=== PATIENT | female | born 1970 | race African-American/Black ===

== ENCOUNTER 2024-11-01 17:39 | Inpatient (IN) | payer MEDICAID, OTHER ==
[~2024-11-01] VITALS: Ht 147.3 cm; Wt 75.6 kg
--- NOTE | 2024-11-01 18:57 | ED.PDOC ---
General HPI Comments 54y F who presents to the ED for chief complaint of flank pain. Pt states she is having R sided flank pain for the past 3 days. Pt states the pain is constant, radiating to the R abdomen, rating the pain 8/10, with noted exacerbation of pain with movement and no relieving factors. Pt has associated nausea and vomiting but otherwise denies any other symptoms. Pt has prior history of kidney stones in the R flank but no prior surgical procedures. Pt otherwise denies any other symptoms at this time. Chief Complaint: Flank Pain Time Seen by MD: 18:54 Reviewed notes: Nurses Notes, Medications, Allergies Allergies: Coded Allergies: Penicillins (Verified Allergy, Unknown, 11/01/24) Sulfa Antibiotics (Verified Allergy, Unknown, 11/01/24) Information Source: Patient Mode of Arrival: Ambulatory Brought in by: self Severity: Moderate Inability to void: None Timing: Days Duration: Since onset Prehospital treatment: None Onset: Spontaneous Symptoms: None History of: Kidney stone Location: (R) Flank Modifying factors: None associated signs and symptoms: Nausea, Vomiting, Flank Pain Past Medical History Past Medical History (Other): kidney stones Surgical History: Denies all surgeries TAPPET ADJUSTER History: Denies all TAPPET ADJUSTER Hx Family History Family History: Family hx of Cancer, Family hx of heart isadora Social History Smoker: Non-Smoker Alcohol: Denies ETOH Use Drugs: Denies Drug Use Lives In: Home Constitutional: denies: chills, diaphoresis, fatigue, fever, malaise, sweats, weakness, others EENTM: denies: blurred vision, double vision, ear bleeding, ear discharge, ear drainage, ear pain, ear ringing, eye pain, eye redness, hearing loss, mouth pain, mouth swelling, nasal discharge, nose bleeding, nose congestion, nose pain, photophobia, tearing, throat pain, throat swelling, voice changes, others Respiratory: denies: cough, hemoptysis, orthopnea, SOB at rest, shortness of breath, SOB with excertion, stridor, wheezing, others Cardiovascular: denies: chest pain, dizzy spells, diaphoresis, Dyspnea on exertion, edema, irregular heart beat, left arm pain, lightheadedness, palpitations, PND, syncope, others Gastrointestinal: reports: nausea, vomiting; denies: abdomen distended, abdominal pain, blood streaked bowels, constipated, diarrhea, dysphagia, difficulty swallowing, hematemesis, melena, poor appetite, poor fluid intake, rectal bleeding, rectal pain, others Genitourinary: reports: flank pain; denies: abnormal vagina bleeding, burning, dyspareunia, dysuria, frequency, hematuria, incontinence, pain, , vagina discharge, urgency, others Neurological: denies: dizziness, fainting, headache, left sided numbness, left sided weakness, numbness, paresthesia, pre-existing deficit, right sided nu mbness, right sided weakness, seizure, speech problems, tingling, tremors, weakness, others Musculoskeletal: denies: back pain, gout, joint pain, joint swelling, muscle pain, muscle stiffness, neck pain, others Integumetry: denies: bruises, change in color, change in hair/nails, dryness, laceration, lesions, lumps, rash, wounds, others Allergic/Immunocompromised: denies: Difficulty Healing, Frequent Infections, Hives, Itching, others Hematologic/Lymphatic: denies: anemia, blood clots, easy bleeding, easy bruising, swollen glands, others Endocrine: denies: excessive hunger, excessive sweating, excessive thirst, excessive urination, flushing, intolerance to cold, intolerance to heat, unexplained weight gain, unexplained weight loss, others Psychiatric: denies: anxiety, bipolar disorder, depression, hopeless, panic disorder, schizophrenia, sleepless, suicidal, others All Other Systems: Reviewed and Negative Physical Exam General Appearance: Moderate Distress HEENT: Normal ENT Inspection, Pharynx Normal, TMs Normal Neck: Full Range of Motion, Non-Tender, Normal, Normal Inspection Respiratory: Chest Non-Tender, Lungs Clear, No Accessory Muscle Use, No Respiratory Distress, Normal Breath Sounds Cardiovascular: No Edema, No JVD, No Murmur, No Gallop, Normal Peripheral Pulses, Regular Rate/Rhythm Breast Exam: Deferred Gastrointestinal: No Organomegaly, Non Tender, No Pulsatile Mass, Normal Bowel Sounds, Soft Genitalia: Deferred Pelvic: Deferred Rectal: Deferred Extremities: No calf tenderness, Normal capillary refill, No pedal edema Musculoskeletal : Location: Right Extremity Location: Back Apperance: Limited ROM, Tenderness: Moderate Neurologic: Alert, crusher wet ground mica II-XII nml as Tested, No Motor Deficits, Normal Affect, Normal Mood, No Sensory Deficits Cerebellar Function: Normal Reflexes: Normal Skin: Dry, Normal Color, Warm Lymphatic: No Adenopathy Was a procedure done? Was a procedure done?: No Differential Diagnosis Kidney stone (Female): Cholelithiasis, Musculoskeletal pain, Pancreatitis, Pyelonephritis, Strain, Urinary obstruction X-Ray, Labs, Meds, VS Vital Signs Date Time Temp Pulse Resp B/P (MAP) Pulse Ox O2 Delivery O2 Flow Rate FiO2 11/01/24 17:41 100.2 109 18 185/73 95 100.2 Lab Test 11/01/24 19:12 11/01/24 17:46 Range/Units White Blood Count 11.0 H 4.4-10.8 10^3/uL Red Blood Count 4.13 4.0-5.20 10^6/uL Hemoglobin 12.0 L 12.2-16.2 g/dL Hematocrit 36.2 36.0-46.0 % Mean Corpuscular Volume 87.6 80.0-100.0 fL Mean Corpuscular Hemoglobin 29.2 28.0-32.0 pg Mean Corpuscular Hemoglobin Concent 33.3 32.0-36.0 g/dL Red Cell Distribution Width 12.6 11.8-14.3 % Platelet Count 231 140-450 10^3/uL Mean Platelet Volume 10.6 6.9-10.8 fL Neutrophils (%) (Auto) 84.4 H 37.0-80.0 % Lymphocytes (%) (Auto) 7.3 L 10.0-50.0 % Monocytes (%) (Auto) 7.8 0.0-12.0 % Eosinophils (%) (Auto) 0.1 0.0-7.0 % Basophils (%) (Auto) 0.4 0.0-2.0 % Neutrophils # (Auto) 9.3 H 1.6-8.6 10 ^3/uL Lymphocytes # (Auto) 0.8 0.4-5.4 10 ^3/uL Monocytes # (Auto) 0.9 0-1.3 10 ^3/uL Eosinophils # (Auto) 0 0-0.8 10 ^3/uL Basophils # (Auto) 0 0-0.2 10 ^3/uL Nucleated Red Blood Cells 0.1 % Sodium Level 138 136-145 mmol/L Potassium Level 3.3 L 3.5-5.1 mmol/L Chloride Level 101 98-107 mmol/L Carbon Dioxide Level 26 20-31 mmol/L Anion Gap 11 5-15 Blood Urea Nitrogen 11 9-23 mg/dL Creatinine 0.82 0.550-1.02 mg/dL Glomerular Filtration Rate Calc 84 >90 mL/min BUN/Creatinine Ratio 13.4 10.0-20.0 Serum Glucose 106 74-106 mg/dL Calcium Level 9.4 8.7-10.4 mg/dL Urine Color Yellow Yellow Urine Clarity Turbid H Clear Urine pH 5.5 5.0-9.0 Urine Specific [place] 1.021 1.001-1.035 Urine Protein 1+ H Negative Urine Ketones 2+ H Negative Urine Blood Trace H Negative /uL Urine Nitrite Negative Negative Urine Bilirubin Negative Negative Urine Urobilinogen Normal Negative mg/dL Urine Leukocyte Esterase 1+ Negative /uL Urine RBC 11 0 - 4 /hpf Urine Microscopic WBC 27 H 0-5 /HPF Urine Squamous Epithelial Cells Few <5 /hpf Urine Bacteria Few H None Seen /hpf Urine Mucus Few None Seen Urine Glucose Normal Normal mg/dL Exam: CT CT AB PEL WO CON-NO ORAL OR IV IMPRESSION: Heterogeneous appearance of the kidneys with nonobstructing bilateral renal calculi. Mild nonspecific qlvuy-kzyiqyb-tycb-left perinephric fat stranding. Correlate for possible infectious process. Fibroid uterus. Hepatic steatosis. Sigmoid diverticulosis without diverticulitis. IV Hep-Lock was established The patient was given medication for the pain as well as Zofran for the nausea The patient's urine test is positive for UTI The patient was given Rocephin 1 g IV piggyback The patient is still having flank pain The CBC shows an elevated white blood cell count of 11.0 which could be consistent with acute pyelonephritis. Images Reviewed?: Images reviewed and evaluated by me Time of 1ST Reevaluation: 20:32 Reevaluation 1ST: Unchanged Patient Education/Counseling: Diagnosis, Treatment, Prognosis Family Education/Counseling: No Family Present SEPSIS Sepsis Screen Date sepsis recognized/suspect: Nov 01, 2024 Time Sepsis recognized/suspect: 1740 Recent Procedure: No On Antibiotic Therapy: No Respiratory Rate >20: No Heart Rate >90: Yes Temp<36 C (96.8 F) or >38.3 C: No SBP <90 or MAP <65 mmHG: No New Acute Mental Status Change: No Is the patient on CPAP, BIPAP,: No Physician Orders Ct Ab Pel Wo Con-No Oral Or Iv (11/01/24 18:50) Heplock Iv (11/01/24 18:50) Vital Signs Date Time Temp Pulse Resp B/P (MAP) Pulse Ox O2 Delivery O2 Flow Rate FiO2 11/01/24 17:41 100.2 109 18 185/73 95 100.2 Laboratory Tests Test 11/01/24 19:12 White Blood Count 11.0 10^3/uL (4.4-10.8) H Departure 1 Departure Time of Disposition: 20:31 Impression: Primary Impression: Intractable abdominal pain Additional Impression: Acute pyelonephritis Disposition: ADMITTED INPATIENT Admit to: Med Surg Condition: Fair Critical Care Note Critical Care Time?: No Stability Stability form required: No Heart Score Heart Score: Heart Score Response (Comments) Value History N/A 0 EKG N/A 0 Age N/A 0 Risk Factors N/A 0 Troponin N/A 0 Total 0 I personally scribed for THOR JOLLY MD ([email or web address]) on 11/01/24 at 18:57. Electronically submitted by Stephanie Morse ([email or web address]). I personally scribed for THOR JOLLY MD ([email or web address]) on 11/01/24 at 20:08. Electronically submitted by Stephanie Morse ([email or web address]). THOR JOLLY MD Nov 01, 2024 18:57
[2024-11-01 19:49] LABS: Urine Protein, UAD 1+ (Negative)
[2024-11-01 19:55] LABS: Hematocrit 36.2 % (36.0-46.0); Hemoglobin 12.0 g/dL (12.2-16.2); Mean Corpuscular Hemoglobin 29.2 pg (28.0-32.0); Mean Corpuscular Volume 87.6 fL (80.0-100.0); Nucleated Red Blood Cells % 0.1 %
--- NOTE | 2024-11-01 19:59 | DVH ---
Exam: CT CT AB PEL WO CON-NO ORAL OR IV History: right flank pain Comparison Study: None TECHNIQUE: Multidetector CT of the abdomen was performed from lung bases to pubic symphysis. Imaging was performed without IV contrast. Axial, coronal and sagittal multiplanar reformats were obtained fr om the axial data set by the technologist. Radiation Dose Information: CT Dose: CTDI volume is 8.87 mGy. Dose-length product is 3.92 mGy*cm FINDINGS: The lung bases are clear. Mild cardiomegaly. Mild hepatic steatosis. Otherwise, liver, spleen, gallbladder, pancreas and adrenal glands unremarka ble. Heterogeneous appearance of the kidneys with nonobstructing bilateral renal calculi measuring up to 6 mm of the upper pole of the left kidney 5 mm of the interpolar region of the right kidney. Mild righ x-zainrjn-mbcg-left perinephric fat stranding. No hydronephrosis bilaterally. Urinary bladder is unre markable. Fibroid uterus with calcified and noncalcified fibroids. Stomach is unremarkable. Small bowel loops are unremarkable. Appendix is unremarkable. Sigmoid diver ticulosis without diverticulitis. Small to moderate amount of fecal material within the colon. No evidence of intraperitoneal free air or free fluid. No evidence of aortic aneurysm. No significant lymphadenopathy. Soft tissues unremarkable. No destructive osseous lesions noted. IMPRESSION: Heterogeneous appearance of the kidneys with nonobstructing bilateral renal calculi. Mild nonspecific eroqc-sycyxva-yclc-left perinephric fat stranding. Correlate for possible infectiou s process. Fibroid uterus. Hepatic steatosis. Sigmoid diverticulosis without diverticulitis.
[2024-11-01 20:01] LABS: Chloride 101 mmol/L (98-107); Sodium 138 mmol/L (136-145)
[2024-11-01 20:02] LABS: Anion Gap 11 (5-15); Carbon Dioxide 26 mmol/L (20-31)
[2024-11-01 20:03] LABS: Calcium 9.4 mg/dL (8.7-10.4)
[2024-11-01 20:07] LABS: BUN/Creatinine Ratio 13.4 (10.0-20.0); Blood Urea Nitrogen 11 mg/dL (9-23)
[2024-11-01 20:08] LABS: Glucose 106 mg/dL (74-106); Potassium 3.3 mmol/L (3.5-5.1)
--- NOTE | 2024-11-01 22:33 | DVHHPRES ---
History of Present Illness Resident Creating Document: PETER BENITO RESIDENT History of Present Illness The patient reports having flank and back pain rating 10/10, associated with nausea and vomiting since last 3 days. She reports exertional shortness of breath, no relation with position. She also has productive cough with white sputum. The reports she often gets cough for more than 1 month duration. The patient also has occasional headaches. She denies any chest pain, fever or any other complaints. 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, P2, multiple abortions Family history: Daughter and niece has sickle cell trait, grandchildren have sickle cell disease Father had colon cancer, mother also had cancer which the patient could not specify Smoking history never Drugs never Alcohol never Home medications low-dose amlodipine, atorvastatin Allergies: sulfa, penicillins, saline Code status full code Review of Systems Gastrointestinal: Abdominal Pain Allergies: Coded Allergies: Penicillins (Verified Allergy, Unknown, 11/01/24) Sulfa Antibiotics (Verified Allergy, Unknown, 11/01/24) Medications Current Medications Medications Dose Ordered Sig/Hany Route Start Time Stop Time Status Last Admin Dose Admin Morphine Sulfate 2 mg Q4HPRN PRN IV 11/01/24 22:30 UNV Exam Vital Signs Vital Signs Date Time Temp Pulse Resp B/P (MAP) Pulse Ox O2 Delivery O2 Flow Rate FiO2 11/01/24 17:41 100.2 109 18 185/73 95 100.2 Exam Pt is lying on bed General Appearance: Alert, Oriented X3, Cooperative, Mild distress HEENT: Atraumatic, Mucous membranes moist/pink Respiratory: Mild crackles over both lungs on auscultation, Normal air movement, No added sounds Cardiovascular: Regular rate, Normal S1, Normal S2, No murmurs Abdominal/ : Active bowel sounds, Soft, no distention, no costovertebral angle tenderness, tenderness noted in bilateral flanks Extremities: No edema, Normal pulses, No tenderness/swelling Skin: No Significant rash, except past surgical scars Neuro: Normal speech, sensorimotor deficits none Psych/Mental Status: Mental status NL, Mood NL Nurse was there as brazing furnace operator during examination Labs/Xrays Labs Test 11/01/24 19:12 11/01/24 17:46 Range/Units White Blood Count 11.0 H 4.4-10.8 10^3/uL Red Blood Count 4.13 4.0-5.20 10^6/uL Hemoglobin 12.0 L 12.2-16.2 g/dL Hematocrit 36.2 36.0-46.0 % Mean Corpuscular Volume 87.6 80.0-100.0 fL Mean Corpuscular Hemoglobin 29.2 28.0-32.0 pg Mean Corpuscular Hemoglobin Concent 33.3 32.0-36.0 g/dL Red Cell Distribution Width 12.6 11.8-14.3 % Platelet Count 231 140-450 10^3/uL Mean Platelet Volume 10.6 6.9-10.8 fL Neutrophils (%) (Auto) 84.4 H 37.0-80.0 % Lymphocytes (%) (Auto) 7.3 L 10.0-50.0 % Monocytes (%) (Auto) 7.8 0.0-12.0 % Eosinophils (%) (Auto) 0.1 0.0-7.0 % Basophils (%) (Auto) 0.4 0.0-2.0 % Neutrophils # (Auto) 9.3 H 1.6-8.6 10 ^3/uL Lymphocytes # (Auto) 0.8 0.4-5.4 10 ^3/uL Monocytes # (Auto) 0.9 0-1.3 10 ^3/uL Eosinophils # (Auto) 0 0-0.8 10 ^3/uL Basophils # (Auto) 0 0-0.2 10 ^3/uL Nucleated Red Blood Cells 0.1 % Sodium Level 138 136-145 mmol/L Potassium Level 3.3 L 3.5-5.1 mmol/L Chloride Level 101 98-107 mmol/L Carbon Dioxide Level 26 20-31 mmol/L Anion Gap 11 5-15 Blood Urea Nitrogen 11 9-23 mg/dL Creatinine 0.82 0.550-1.02 mg/dL Glomerular Filtration Rate Calc 84 >90 mL/min BUN/Creatinine Ratio 13.4 10.0-20.0 Serum Glucose 106 74-106 mg/dL Calcium Level 9.4 8.7-10.4 mg/dL Urine Color Yellow Yellow Urine Clarity Turbid H Clear Urine pH 5.5 5.0-9.0 Urine Specific [place] 1.021 1.001-1.035 Urine Protein 1+ H Negative Urine Ketones 2+ H Negative Urine Blood Trace H Negative /uL Urine Nitrite Negative Negative Urine Bilirubin Negative Negative Urine Urobilinogen Normal Negative mg/dL Urine Leukocyte Esterase 1+ Negative /uL Urine RBC 11 0 - 4 /hpf Urine Microscopic WBC 27 H 0-5 /HPF Urine Squamous Epithelial Cells Few <5 /hpf Urine Bacteria Few H None Seen /hpf Urine Mucus Few None Seen Urine Glucose Normal Normal mg/dL SEPSIS Sepsis Screen Date sepsis recognized/suspect: Nov 01, 2024 Time Sepsis recognized/suspect: 1740 Recent Procedure: No On Antibiotic Therapy: No Respiratory Rate >20: No Heart Rate >90: Yes Temp<36 C (96.8 F) or >38.3 C: No SBP <90 or MAP <65 mmHG: No New Acute Mental Status Change: No Is the patient on CPAP, BIPAP,: No Physician Orders Ct Ab Pel Wo Con-No Oral Or Iv (11/01/24 18:50) Heplock Iv (11/01/24 18:50) Sodium Chloride 0.9% (11/01/24 22:30) Chest Two Views Routine (11/01/24 22:19) Admit (11/01/24 22:19) Allergies (11/01/24 22:19) Code Status (11/01/24 22:19) Oxygen Per Hour (11/01/24 22:19) Complete Blood Count (11/02/24 04:00) Comprehensive Metabolic Panel (11/02/24 04:00) Clear Liq Diet (11/02/24 Breakfast) Morphine Sulfate Injection (11/01/24 22:30) Stat Ekg For Chest Pain (11/01/24 22:19) Notify Of Changes From Base (11/01/24 22:19) Vital Signs Date Time Temp Pulse Resp B/P (MAP) Pulse Ox O2 Delivery O2 Flow Rate FiO2 11/01/24 17:41 100.2 109 18 185/73 95 100.2 Laboratory Tests Test 11/01/24 19:12 White Blood Count 11.0 10^3/uL (4.4-10.8) H Assessment/Plan Assessment/Plan Flank pain due to nephrolithiasis CT abdomen pelvis without contrast: Heterogeneous appearance of the kidneys with nonobstructing bilateral renal calculi.Mild nonspecific qsrno-nypznkp-zeee-left perinephric fat stranding. Correlate for possible infectious process. Fibroid uterus. Hepatic steatosis. Sigmoid diverticulosis without diverticulitis. -IV normal saline, Benadryl injection was given before due to concern related to allergy -close monitoring for signs symptoms of allergy -tamsulosin -urology consult -morphine for pain control Cough due to pneumonia/pulmonary edema Chest x-ray:1. Mild pulmonary vascular congestion. No focal consolidation. 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 Barajas, patient and RN Plan discussed with: Patient, Spouse (RN), Other My Orders Orders - PETER BENITO Procedure Category Date Status Time Sodium Chloride 0.9% PHA 11/01/24 In Process 22:30 Chest Two Views XY 11/01/24 Logged Routine 22:19 Admit ADMIT 11/01/24 Transmitted 22:19 Allergies HITESH 11/01/24 In Process 22:19 Code Status CODE 11/01/24 Transmitted 22:19 Oxygen Per Hour RT 11/01/24 Transmitted 22:19 Complete Blood Count LAB 11/02/24 Verified 04:00 Comprehensive LAB 11/02/24 Verified Metabolic Panel 04:00 Clear Liq Diet DIET 11/02/24 Transmitted Breakfast Morphine Sulfate PHA 11/01/24 Logged Injection 22:30 Stat Ekg For Chest HITESH 11/01/24 In Process Pain 22:19 Notify Of Changes HITESH 11/01/24 In Process From Base 22:19 Common Visit Codes: 37926-[id number] INP/OBS CARE (HIGH) Secondary Visit Codes: [id number] CARE PLAN 30 MINUTES PETER BENITO Nov 01, 2024 22:33
--- NOTE | 2024-11-01 23:02 | DVH ---
XY CHEST TWO VIEWS ROUTINE CLINICAL HISTORY: Cough, crackles COMPARISON: None TECHNIQUE: Frontal and lateral view of the chest was obtained FINDINGS: Lines and Tubes: None Lungs: Mild pulmonary vascular congestion. No focal consolidation. Pleura: No effusion. No pneumothorax. Cardiomediastinal contours: Unremarkable Bones: No acute osseous abnormality. IMPRESSION: 1. Mild pulmonary vascular congestion. No focal consolidation.
[2024-11-01] MEDS: SODIUM CHLORIDE 0.9% 1,000 ML IV ONE (23:59)
[2024-11-02] MEDS: SODIUM CHLORIDE 0.9% 1,000 ML IVB ONE (02:07)
[2024-11-02] MEDS: diphenhdrAMINE HCL 50 MG/1 ML VL IV ONE (02:08)
[2024-11-02] MEDS: KETOROLAC TROMETH 30 MG/ML 1ML VIAL IV ONE (02:15)
[2024-11-02] MEDS: ONDANSETRON HCL 4 MG/2 ML VIAL IV ONE (02:15)
[2024-11-02] MEDS: TAMSULOSIN HYDROCHLORIDE 0.4 MG CAP PO ONE (03:00)
[2024-11-02 04:44] LABS: Hematocrit 34.3 % (36.0-46.0); Hemoglobin 11.4 g/dL (12.2-16.2); Mean Corpuscular Hemoglobin 29.1 pg (28.0-32.0); Mean Corpuscular Volume 87.7 fL (80.0-100.0); Nucleated Red Blood Cells % 0.1 %
[2024-11-02 05:03] LABS: Alanine Aminotransferase 15 U/L (7-40); Albumin 4.7 g/dL (3.2-4.8); Alkaline Phosphatase 63 U/L (46-116); Anion Gap 11 (5-15); BUN/Creatinine Ratio 12.7 (10.0-20.0); Bilirubin, Total 0.7 mg/dL (0.2-1.0); Blood Urea Nitrogen 10 mg/dL (9-23); Calcium 9.2 mg/dL (8.7-10.4); Carbon Dioxide 26 mmol/L (20-31); Chloride 101 mmol/L (98-107); Sodium 138 mmol/L (136-145); Total Protein 8.0 g/dL (5.7-8.2)
[2024-11-02 05:06] LABS: Glucose 114 mg/dL (74-106); Potassium 3.2 mmol/L (3.5-5.1)
--- NOTE | 2024-11-02 07:46 | DVHPNRES ---
Progress Note Date Seen: Nov 02, 2024 Resident Creating Document: MONET APARICIO RESIDENT Medical Necessity Reason Pt with a Central, PICC or Fol: No Subjective Review of Systems Lenore Armas is a 54-year-old female with past medical history of hypertension, hyperlipidemia, she came to the ER with chief complain of flank pain and back pain. On admission, flank and back pain rating 10/10, associated with nausea and vomiting since last 3 days. She reported exertional shortness of breath. She also had productive cough with white sputum on admission. The patient also reported occasional headaches. PMHx: HTN, HLD Social history: Nonsmoker, nonalcoholic. Lives in a home ROS: Constitutional: Denies weight loss, fever and chills. HEENT: Denies changes in vision and hearing. Respiratory: Cough with white sputum production, shortness of breath Cardiovascular: Denies chest discomfort or palpitations GI: Flank pain, back pain associated with nausea, vomiting. 2 episodes yesterday. : History of kidney stones. Denies dysuria and urinary frequency. Musculoskeletal: Denies myalgias and joint pain Skin: Denies rash and pruritus. Neurological: Headache, denies vision or hearing problems She was examined at bedside today. Her vitals show elevated blood pressure, fever has resolved now. She complains of back pain in the right flank, which started 3 days ago , rating pain 4 on 10. Complains of fever which was present yesterday. She also complained of constipation since the last 2 days. Objective vital signs Vital Sign Date Time Temp Pulse Resp B/P (MAP) Pulse Ox O2 Delivery O2 Flow Rate FiO2 11/02/24 07:02 99.1 86 16 184/67 (106) 96 99.1 Total Intake and Output 11/01/24 11/01/24 11/02/24 15:00 23:00 07:00 Intake Total 1000 ml Balance 1000 ml medications Current Medications Medications Dose Ordered Sig/Hany Route Start Time Stop Time Status Last Admin Dose Admin Morphine Sulfate 2 mg Q4HPRN PRN IV 11/01/24 22:30 Tamsulosin HCl 0.4 mg QPM PO 11/02/24 18:00 Nifedipine 60 mg DAILY PO 11/02/24 10:00 Examination General Appearance: Alert, Oriented X3, Cooperative, No acute distress HEENT: Atraumatic, PERRLA, EOMI, Mucous membrane moist/pink Respiratory: Lungs are clear to auscultation Cardiovascular: Regular rate, Normal S1, Normal S2, No murmurs, no chest wall tenderness Abdominal: Normal bowel sounds, Soft, No tenderness, No hepatospenomegaly, No masses Extremities: No clubbing, No cyanosis, No edema, Normal pulses, No tenderness/swelling Skin: No rashes, No breakdown, No significant lesion Neuro: Normal gait, Normal speech, Strength at 5/5 X4 ext, Normal tone, Sensation intact, Cranial nerves 3-12 NL, Reflexes 2+ Psych/Mental Status: Mental status NL, Mood NL laboratory and microbiology Laboratory Tests 11/02/24 03:49 Test 11/02/24 03:49 Range/Units Serum Glucose 114 H 74-106 mg/dL Problem List/Assessment/Plan Problem List/Assessment/Plan Intractable Left flank pain, likely due to below Sepsis due to Complicated UTI Pyelonephritis, possible Neutrophilic leukocytosis WBCs 12.9 K Tachycardia, fever Lactic acid WNL UA positive for UTI; Turbid urine, trace blood, U WBC 27, few bacteria Pain management Urine culture ordered Blood culture ordered Renal calculi CC of recurrent renal calculi Continue tamsulosin CT shows Heterogeneous appearance of the kidneys with nonobstructing bilateral renal calculi. Hypertensive urgency Managed with clonidine, nifedipine Fibroid uterus, CT finding Hepatic steatosis, CT finding Diverticulosis, without diverticulitis, CT finding Microcytic anemia DIET: Clear Liquid DVT PROPHYLAXIS: Ambulatory GI PROPHYLAXIS: Famotidine BOWEL REGIMEN: Colace CODE STATUS: Goals of care discussed with patient at bedside for more than 35 minutes. Full code DISPOSITION: Med/surge Patient's status and plan discussed with the patient. Case discussed with Dr. Mahoney. Plan discussed with: Patient Date of Service: Nov 02, 2024 Billing Provider: DELMIS MAHONEY MD Common Visit Codes: [id number] INP/OBS CARE(HIGH) MONET APARICIO RESIDENT Nov 02, 2024 07:46 DELMIS MAHONEY MD Nov 06, 2024 20:29
[2024-11-02] MEDS: POTASSIUM CHLORIDE 40 MEQ, LIDOCAINE 1% (LOCAL ANESTH.) 4 ML in SODIUM CHL 0.9% 250 ML IV ONE (08:30)
[2024-11-02] MEDS: LACTATED RINGER'S 1,000 ML IV SCH (08:30)
[2024-11-02] MEDS: LACTATED RINGER'S 1,000 ML IV ONE (08:30)
[2024-11-02] MEDS: PIPERACILLIN-TAZOB 3.375GM 100 ML IV SCH (08:30)
[2024-11-02] MEDS ORDERED: ACETAMINOPHEN 325 MG TAB PO PRN (08:45)
[2024-11-02] MEDS ORDERED: LABETALOL HCL 20 MG/4 ML VL IV PRN (08:45)
[2024-11-02] MEDS: FAMOTIDINE (10MG/ML) 2ML VL IV SCH (11:10)
[2024-11-02] MEDS: MORPHINE SULFATE INJ 2 MG/ml SYRG IV PRN (11:56)
[2024-11-02] MEDS ORDERED: cefTRIAXone 1GM/50ML D5W 50 ML IV SCH (12:00)
[2024-11-02 13:18] VITALS: RESP 16; O2SAT 94
[2024-11-02 13:25] VITALS: BP 196/95; PULSE 89; RESP 18; TEMP 98.3; O2SAT 98
[2024-11-02 14:18] VITALS: BP 140/73; PULSE 84; RESP 17; TEMP 97.4; O2SAT 94
[2024-11-02 17:00] VITALS: BP 135/82; PULSE 85; RESP 18; TEMP 98.1; O2SAT 93
[2024-11-02] MEDS: LISINOPRIL 20 MG TAB PO ONE (17:00)
[2024-11-02] MEDS: ACETAMINOPHEN 325 MG TAB PO SCH (18:00)
[2024-11-02] MEDS: TAMSULOSIN HYDROCHLORIDE 0.4 MG CAP PO SCH (18:12)
[2024-11-02 20:00] VITALS: PULSE 92; RESP 17; O2SAT 95
[2024-11-02 21:00] VITALS: BP 134/68; PULSE 94; RESP 17; TEMP 98.3; O2SAT 95
[2024-11-02] MEDS: FAMOTIDINE 20 MG TAB PO SCH (21:50)
[2024-11-03] VITALS (8 sets, daily range): BP systolic 108–132; BP diastolic 53–67; PULSE 79–95; RESP 16–18; TEMP 98–98.6; O2SAT 92–98
[2024-11-03 07:56] LABS: Hematocrit 32.3 % (36.0-46.0); Hemoglobin 11.1 g/dL (12.2-16.2); Mean Corpuscular Hemoglobin 29.9 pg (28.0-32.0); Mean Corpuscular Volume 87.0 fL (80.0-100.0); Nucleated Red Blood Cells % 0.0 %
[2024-11-03 08:10] LABS: Chloride 100 mmol/L (98-107); Sodium 138 mmol/L (136-145)
[2024-11-03 08:11] LABS: Anion Gap 9 (5-15); Calcium 9.3 mg/dL (8.7-10.4); Carbon Dioxide 29 mmol/L (20-31)
[2024-11-03 08:16] LABS: BUN/Creatinine Ratio 11.8 (10.0-20.0); Blood Urea Nitrogen 10 mg/dL (9-23); Glucose 99 mg/dL (74-106)
[2024-11-03 08:21] LABS: Potassium 2.9 mmol/L (3.5-5.1)
[2024-11-03] MEDS: hydroCHLOROthiazide 25 MG TAB PO SCH (10:00)
[2024-11-03] MEDS: LISINOPRIL 20 MG TAB PO SCH (10:00)
[2024-11-03] MEDS: FAMOTIDINE 20 MG TAB PO SCH (10:00)
[2024-11-03] MEDS: POTASSIUM CHLORIDE 60 MEQ, LIDOCAINE 1% (LOCAL ANESTH.) 6 ML in SODIUM CHL 0.9% 500 ML IV ONE (12:35)
--- NOTE | 2024-11-03 18:06 | DVHPNRES ---
Progress Note Date Seen: Nov 03, 2024 Resident Creating Document: MONET APARICIO RESIDENT Medical Necessity Reason Pt with a Central, PICC or Fol: No Subjective Review of Systems Lenore Armas is a 54-year-old female with past medical history of hypertension, hyperlipidemia, she came to the ER with chief complain of flank pain and back pain. On admission, flank and back pain rating 10/10, associated with nausea and vomiting since last 3 days. She reported exertional shortness of breath. She also had productive cough with white sputum on admission. The patient also reported occasional headaches. PMHx: HTN, HLD Social history: Nonsmoker, nonalcoholic. Lives in a home ROS: Constitutional: Denies weight loss, fever and chills. HEENT: Denies changes in vision and hearing. Respiratory: Cough with white sputum production, shortness of breath Cardiovascular: Denies chest discomfort or palpitations GI: Flank pain, back pain associated with nausea, vomiting. 2 episodes yesterday. : History of kidney stones. Denies dysuria and urinary frequency. Musculoskeletal: Denies myalgias and joint pain Skin: Denies rash and pruritus. Neurological: Headache, denies vision or hearing problems She was examined at bedside today. Vitals are revealed blood pressure on the lower side. She reported improvement in symptoms. We will switch to oral antibiotics tomorrow if she remains stable. We will continue monitoring. Objective vital signs Vital Sign Date Time Temp Pulse Resp B/P (MAP) Pulse Ox O2 Delivery O2 Flow Rate FiO2 11/03/24 16:53 98.2 80 16 124/53 (76) 95 98.2 11/03/24 07:37 Room Air* 0 21 Total Intake and Output 11/02/24 11/02/24 11/03/24 15:00 23:00 07:00 Intake Total 300 ml 400 ml Balance 300 ml 400 ml medications Current Medications Medications Dose Ordered Sig/Hany Route Start Time Stop Time Status Last Admin Dose Admin Levofloxacin/ Dextrose 100 ml @ 100 mls/hr DAILY IV 11/02/24 13:15 11/03/24 09:59 100 MLS/HR Nifedipine 90 mg DAILY PO 11/03/24 10:00 Lisinopril 20 mg DAILY PO 11/03/24 10:00 11/03/24 10:00 20 MG Acetaminophen 650 mg Q6HR PO 11/02/24 18:00 Hydrochlorothiazide 25 mg DAILY PO 11/03/24 10:00 11/03/24 10:00 25 MG Famotidine 20 mg DAILY PO 11/03/24 10:00 11/03/24 10:00 20 MG Examination General Appearance: Alert, Oriented X3, Cooperative, No acute distress HEENT: Atraumatic, PERRLA, EOMI, Mucous membrane moist/pink Respiratory: Lungs are clear to auscultation Cardiovascular: Regular rate, Normal S1, Normal S2, No murmurs, no chest wall tenderness Abdominal: Normal bowel sounds, Soft, No tenderness, No hepatospenomegaly, No masses Extremities: No clubbing, No cyanosis, No edema, Normal pulses, No tenderness/swelling Skin: No rashes, No breakdown, No significant lesion Neuro: Normal gait, Normal speech, Strength at 5/5 X4 ext, Normal tone, Sensation intact, Cranial nerves 3-12 NL, Reflexes 2+ Psych/Mental Status: Mental status NL, Mood NL laboratory and microbiology Laboratory Tests 11/03/24 06:33 Test 11/03/24 06:33 Range/Units Serum Glucose 99 74-106 mg/dL Microbiology Date/Time Source Procedure Growth Status 11/02/24 09:18 Blood Blood Culture - Preliminary NO GROWTH AFTER 24 HOURS OF INCUBATION. Resulted 11/01/24 17:48 Voided Urine Urine Culture - Preliminary Resulted Problem List/Assessment/Plan Problem List/Assessment/Plan Intractable Left flank pain, likely due to below Sepsis due to Complicated UTI Pyelonephritis, possible Neutrophilic leukocytosis WBCs 12.9 K Tachycardia, fever Lactic acid WNL UA positive for UTI; Turbid urine, trace blood, U WBC 27, few bacteria Urine culture negative preliminary Blood culture negative preliminary Pain management Continues IV levofloxacin We will switch antibiotics to oral levofloxacin tomorrow if she remains stable Renal calculi Hx of recurrent renal calculi Continue tamsulosin CT shows Heterogeneous appearance of the kidneys with nonobstructing bilateral renal calculi. Hypertensive urgency Managed with clonidine, nifedipine Fibroid uterus, CT finding Hepatic steatosis, CT finding Diverticulosis, without diverticulitis, CT finding Microcytic anemia DIET: Clear Liquid DVT PROPHYLAXIS: Ambulatory GI PROPHYLAXIS: Famotidine BOWEL REGIMEN: Colace CODE STATUS: Goals of care discussed with patient at bedside for more than 35 minutes. Full code DISPOSITION: Med/surge Patient's status and plan discussed with the patient. Case discussed with Dr. Mahoney. Plan discussed with: Patient Date of Service: Nov 03, 2024 Billing Provider: DELMIS MAHONEY MD Common Visit Codes: [id number] INP/OBS CARE(HIGH) MONET APARICIO RESIDENT Nov 03, 2024 18:06 DELMIS MAHONEY MD Nov 06, 2024 20:45
[2024-11-04] VITALS (8 sets, daily range): BP systolic 106–151; BP diastolic 65–86; PULSE 81–101; RESP 14–20; TEMP 97.7–98.8; O2SAT 92–97
[2024-11-04] MEDS: diphenhdrAMINE HCL 50 MG/1 ML VL IV ONE (05:03)
[2024-11-04] MEDS ORDERED: cefTRIAXone 1GM/50ML D5W 50 ML IV ONE (12:00)
[2024-11-04 14:31] LABS: Chloride 100 mmol/L (98-107); Sodium 137 mmol/L (136-145)
[2024-11-04 14:32] LABS: Anion Gap 9 (5-15); Calcium 9.2 mg/dL (8.7-10.4); Carbon Dioxide 28 mmol/L (20-31)
[2024-11-04 14:33] LABS: Potassium 3.2 mmol/L (3.5-5.1)
[2024-11-04 14:37] LABS: BUN/Creatinine Ratio 11.1 (10.0-20.0); Glucose 105 mg/dL (74-106)
[2024-11-04 14:39] LABS: Blood Urea Nitrogen 9 mg/dL (9-23)
--- NOTE | 2024-11-04 14:55 | DVHPNRES ---
Progress Note Date Seen: Nov 04, 2024 Resident Creating Document: MONET APARICIO RESIDENT Medical Necessity Reason Pt with a Central, PICC or Fol: No Subjective Review of Systems Lenore Armas is a 54-year-old female with past medical history of hypertension, hyperlipidemia, she came to the ER with chief complain of flank pain and back pain. On admission, flank and back pain rating 10/10, associated with nausea and vomiting since last 3 days. She reported exertional shortness of breath. She also had productive cough with white sputum on admission. The patient also reported occasional headaches. PMHx: HTN, HLD Social history: Nonsmoker, nonalcoholic. Lives in a home ROS: Constitutional: Denies weight loss, fever and chills. HEENT: Denies changes in vision and hearing. Respiratory: Cough with white sputum production, shortness of breath Cardiovascular: Denies chest discomfort or palpitations GI: Flank pain, back pain associated with nausea, vomiting. 2 episodes yesterday. : History of kidney stones. Denies dysuria and urinary frequency. Musculoskeletal: Denies myalgias and joint pain Skin: Denies rash and pruritus. Neurological: Headache, denies vision or hearing problems She was examined at bedside today. She reported new onset swelling of the lip overnight, does not complain of difficulty breathing, itching, pain. Her vitals are stable. Her urine culture sensitivity report shows resistance to levofloxacin, ciprofloxacin, we will switch antibiotics to IV ceftriaxone. We will continue monitoring and managing. Objective vital signs Vital Sign Date Time Temp Pulse Resp B/P (MAP) Pulse Ox O2 Delivery O2 Flow Rate FiO2 11/04/24 13:00 97.7 82 19 149/86 (107) 96 97.7 11/04/24 07:30 Room Air* 0 21 Total Intake and Output 11/03/24 11/03/24 11/04/24 15:00 23:00 07:00 Intake Total 320 ml 1250 ml 1220 ml Balance 320 ml 1250 ml 1220 ml medications Current Medications Medications Dose Ordered Sig/Hany Route Start Time Stop Time Status Last Admin Dose Admin Nifedipine 90 mg DAILY PO 11/03/24 10:00 11/04/24 10:16 90 MG Acetaminophen 650 mg Q6HR PO 11/02/24 18:00 11/04/24 12:04 650 MG Hydrochlorothiazide 25 mg DAILY PO 11/03/24 10:00 11/04/24 10:11 25 MG Famotidine 20 mg DAILY PO 11/03/24 10:00 11/04/24 10:11 20 MG Amlodipine Besylate 5 mg DAILY PO 11/04/24 10:00 11/04/24 10:10 5 MG Ceftriaxone Sodium 50 ml @ 100 mls/hr DAILY@09 IV 11/05/24 09:00 Examination General Appearance: Alert, Oriented X3, Cooperative, No acute distress HEENT: Atraumatic, PERRLA, EOMI, Mucous membrane moist/pink Respiratory: Lungs are clear to auscultation Cardiovascular: Regular rate, Normal S1, Normal S2, No murmurs, no chest wall tenderness Abdominal: Normal bowel sounds, Soft, No tenderness, No hepatospenomegaly, No masses Extremities: No clubbing, No cyanosis, No edema, Normal pulses, No tenderness/swelling Skin: No rashes, No breakdown, No significant lesion Neuro: Normal gait, Normal speech, Strength at 5/5 X4 ext, Normal tone, Sensation intact, Cranial nerves 3-12 NL, Reflexes 2+ Psych/Mental Status: Mental status NL, Mood NL laboratory and microbiology Laboratory Tests 11/04/24 14:03 11/03/24 06:33 Test 11/04/24 14:03 Range/Units Serum Glucose 105 74-106 mg/dL Microbiology Date/Time Source Procedure Growth Status 11/02/24 09:18 Blood Blood Culture - Preliminary NO GROWTH AFTER 48 HOURS OF INCUBATION. Resulted 11/01/24 17:48 Voided Urine Urine Culture - Final Escherichia coli Complete Problem List/Assessment/Plan Problem List/Assessment/Plan Intractable Left flank pain, likely due to below Sepsis due to Complicated UTI Pyelonephritis, possible Neutrophilic leukocytosis WBCs 12.9 K Tachycardia, fever Lactic acid WNL UA positive for UTI; Turbid urine, trace blood, U WBC 27, few bacteria Urine culture shows E coli resistant to levofloxacin, ciprofloxacin Blood culture negative preliminary Pain management Culture shows resistance to levofloxacin; Discontinue IV levofloxacin Start IV ceftriaxone Angioedema likely due to DEON inhibitor Discontinue lisinopril. Continue monitoring Renal calculi Hx of recurrent renal calculi Continue tamsulosin CT shows Heterogeneous appearance of the kidneys with nonobstructing bilateral renal calculi. Hypertensive urgency Managed with clonidine, nifedipine Fibroid uterus, CT finding Hepatic steatosis, CT finding Diverticulosis, without diverticulitis, CT finding Microcytic anemia DIET: Clear Liquid DVT PROPHYLAXIS: Ambulatory GI PROPHYLAXIS: Famotidine CODE STATUS: Goals of care discussed with patient at bedside for more than 25 minutes. Full code DISPOSITION: Med/surge Patient's status and plan discussed with the patient. Case discussed with Dr. Mahoney. Plan discussed with: Patient (and spouse) Date of Service: Nov 04, 2024 Billing Provider: DELMIS MAHONEY MD Common Visit Codes: [id number] INP/OBS CARE(HIGH) MONET APARICIO RESIDENT Nov 04, 2024 14:55 DELMIS MAHONEY MD Nov 06, 2024 21:07
[2024-11-04] MEDS: cefTRIAXone 1GM/50ML D5W 50 ML IV ONE (16:33)
[2024-11-04] MEDS: diphenhdrAMINE HCL 25 MG CAP PO SCH (21:29)
[2024-11-04] MEDS: predniSONE 20 MG TAB PO ONE (21:29)
[2024-11-05] VITALS (8 sets, daily range): BP systolic 136–149; BP diastolic 74–88; PULSE 80–98; RESP 16–18; TEMP 98.2–98.9; O2SAT 91–98
[2024-11-05] MEDS ORDERED: POTASSIUM EFFERVESENT TAB 25 MEQ GT ONE (01:00)
[2024-11-05] MEDS: POTASSIUM EFFERVESENT TAB 25 MEQ PO ONE (05:45)
[2024-11-05 07:39] LABS: Calcium 9.8 mg/dL (8.7-10.4); Sodium 137 mmol/L (136-145)
[2024-11-05 07:40] LABS: Anion Gap 9 (5-15); Carbon Dioxide 30 mmol/L (20-31); Chloride 98 mmol/L (98-107); Potassium 3.4 mmol/L (3.5-5.1)
[2024-11-05 07:45] LABS: BUN/Creatinine Ratio 11.4 (10.0-20.0); Blood Urea Nitrogen 10 mg/dL (9-23); Glucose 142 mg/dL (74-106)
[2024-11-05] MEDS: cefTRIAXone 1GM/50ML D5W 50 ML IV SCH (10:07)
[2024-11-05] MEDS: predniSONE 20 MG TAB PO SCH (10:08)
--- NOTE | 2024-11-05 16:19 | DVHPNRES ---
Progress Note Date Seen: Nov 05, 2024 Resident Creating Document: MONET APARICIO RESIDENT Medical Necessity Reason Pt with a Central, PICC or Fol: No Subjective Review of Systems Lenore Armas is a 54-year-old female with past medical history of hypertension, hyperlipidemia, she came to the ER with chief complain of flank pain and back pain. On admission, flank and back pain rating 10/10, associated with nausea and vomiting since last 3 days. She reported exertional shortness of breath. She also had productive cough with white sputum on admission. The patient also reported occasional headaches. PMHx: HTN, HLD Social history: Nonsmoker, nonalcoholic. Lives in a home ROS: Constitutional: Denies weight loss, fever and chills. HEENT: Denies changes in vision and hearing. Respiratory: Cough with white sputum production, shortness of breath Cardiovascular: Denies chest discomfort or palpitations GI: Flank pain, back pain associated with nausea, vomiting. 2 episodes yesterday. : History of kidney stones. Denies dysuria and urinary frequency. Musculoskeletal: Denies myalgias and joint pain Skin: Denies rash and pruritus. Neurological: Headache, denies vision or hearing problems She was examined at bedside today. She reported reduction in swelling lip; does not complain of difficulty breathing, itching, pain, wheeze. Her vitals are stable. Her urine culture sensitivity report shows resistance to levofloxacin, ciprofloxacin, we will continue IV ceftriaxone. We will continue monitoring and managing. Objective vital signs Vital Sign Date Time Temp Pulse Resp B/P (MAP) Pulse Ox O2 Delivery O2 Flow Rate FiO2 11/05/24 12:37 98.2 87 17 149/74 (99) 97 98.2 11/05/24 08:00 Room Air* 0 21 Total Intake and Output 11/04/24 11/04/24 11/05/24 15:00 23:00 07:00 Intake Total 1250 ml 950 ml Output Total 200 ml Balance 1250 ml 750 ml medications Current Medications Medications Dose Ordered Sig/Hany Route Start Time Stop Time Status Last Admin Dose Admin Nifedipine 90 mg DAILY PO 11/03/24 10:00 11/05/24 10:10 90 MG Acetaminophen 650 mg Q6HR PO 11/02/24 18:00 11/05/24 12:00 650 MG Hydrochlorothiazide 25 mg DAILY PO 11/03/24 10:00 8/9/25 10:09 25 MG Famotidine 20 mg DAILY PO 11/03/24 10:00 11/05/24 10:08 20 MG Ceftriaxone Sodium 50 ml @ 100 mls/hr DAILY@09 IV 11/05/24 09:00 11/05/24 10:07 100 MLS/HR Diphenhydramine HCl 50 mg BID PO 11/04/24 22:00 11/05/24 10:09 50 MG Prednisone 40 mg DAILY PO 11/05/24 10:00 11/05/24 10:08 40 MG Examination General Appearance: Alert, Oriented X3, Cooperative, No acute distress HEENT: Angioedema, swelling on upper lip. Atraumatic, PERRLA, EOMI, Mucous membrane moist/pink Respiratory: Lungs are clear to auscultation Cardiovascular: Regular rate, Normal S1, Normal S2, No murmurs, no chest wall tenderness Abdominal: Normal bowel sounds, Soft, No tenderness, No hepatospenomegaly, No masses Extremities: No clubbing, No cyanosis, No edema, Normal pulses, No tenderness/swelling Skin: No rashes, No breakdown, No significant lesion Neuro: Normal gait, Normal speech, Strength at 5/5 X4 ext, Normal tone, Sensation intact, Cranial nerves 3-12 NL, Reflexes 2+ Psych/Mental Status: Mental status NL, Mood NL laboratory and microbiology Laboratory Tests 11/05/24 05:53 11/03/24 06:33 Test 11/05/24 05:53 Range/Units Serum Glucose 142 H 74-106 mg/dL Microbiology Date/Time Source Procedure Growth Status 11/02/24 09:18 Blood Blood Culture - Preliminary NO GROWTH AFTER 72 HOURS OF INCUBATION. Resulted 11/01/24 17:48 Voided Urine Urine Culture - Final Escherichia coli Complete Problem List/Assessment/Plan Problem List/Assessment/Plan Intractable Left flank pain, likely due to below Sepsis due to Complicated UTI Pyelonephritis, possible Neutrophilic leukocytosis WBCs 12.9 K Tachycardia, fever Lactic acid WNL UA positive for UTI; Turbid urine, trace blood, U WBC 27, few bacteria Urine culture shows E coli resistant to levofloxacin, ciprofloxacin Blood culture negative preliminary Pain management Culture shows resistance to levofloxacin; Discontinue IV levofloxacin Start IV ceftriaxone Angioedema likely due to DEON inhibitor Discontinue lisinopril. Continue monitoring Discussed with patient: She will avoid DEON inhibitors and Entresto in future Renal calculi Hx of recurrent renal calculi Continue tamsulosin CT shows Heterogeneous appearance of the kidneys with nonobstructing bilateral renal calculi. Hypertensive urgency Managed with clonidine, nifedipine Fibroid uterus, CT finding Hepatic steatosis, CT finding Diverticulosis, without diverticulitis, CT finding Microcytic anemia DIET: Clear Liquid DVT PROPHYLAXIS: Ambulatory GI PROPHYLAXIS: Famotidine CODE STATUS: Goals of care discussed with patient at bedside for more than 25 minutes. Full code DISPOSITION: Med/surge Patient's status and plan discussed with the patient. Case discussed with Dr. Mahoney. Plan discussed with: Patient (and spouse) My Orders My Orders Orders - MONET APARICIO Procedure Category Date Status Time Basic Metabolic Panel LAB 11/06/24 Verified 04:00 Date of Service: Nov 05, 2024 Billing Provider: DELMIS MAHONEY MD Common Visit Codes: [id number] INP/OBS CARE(HIGH) MONET APARICIO RESIDENT Nov 05, 2024 16:19 DELMIS MAHONEY MD Nov 07, 2024 21:10
[2024-11-06] VITALS (7 sets, daily range): BP systolic 122–147; BP diastolic 67–85; PULSE 79–99; RESP 16–20; TEMP 98–98.6; O2SAT 94–97
[2024-11-06 10:04] LABS: Anion Gap 12 (5-15); Calcium 9.7 mg/dL (8.7-10.4); Carbon Dioxide 26 mmol/L (20-31)
[2024-11-06 10:09] LABS: BUN/Creatinine Ratio 12.4 (10.0-20.0); Blood Urea Nitrogen 12 mg/dL (9-23)
[2024-11-06 10:10] LABS: Chloride 97 mmol/L (98-107); Glucose 147 mg/dL (74-106); Potassium 2.7 mmol/L (3.5-5.1); Sodium 135 mmol/L (136-145)
[2024-11-06] MEDS: POTASSIUM CHLORIDE 60 MEQ, LIDOCAINE 1% (LOCAL ANESTH.) 6 ML in SODIUM CHL 0.9% 500 ML IV ONE (12:20)
[2024-11-06] MEDS ORDERED: CEPH250C PO (14:54)
[2024-11-06] MEDS ORDERED: HYDR25TA5 PO (14:54)
[2024-11-06] MEDS ORDERED: NIFE90TA75 PO (14:54)
--- NOTE | 2024-11-06 17:10 | DVHDSRES ---
Discharge Summary Date of Admission Resident Creating Document: MONET APARICIO RESIDENT Nov 01, 2024 at 22:19 Date of Discharge: Nov 06, 2024 Admitting Diagnosis Sepsis due to Complicated UTI Labs/Diagnostic Data: Laboratory Results Test 11/06/24 09:45 11/05/24 05:53 11/03/24 06:33 11/02/24 09:18 Sodium Level 135 mmol/L (136-145) Potassium Level 2.7 mmol/L (3.5-5.1) Chloride Level 97 mmol/L (98-107) Carbon Dioxide Level 26 mmol/L (20-31) Anion Gap 12 (5-15) Blood Urea Nitrogen 12 mg/dL (9-23) Creatinine 0.97 mg/dL (0.550-1.02) Glomerular Filtration Rate Calc 69 mL/min (>90) BUN/Creatinine Ratio 12.4 (10.0-20.0) Serum Glucose 147 mg/dL (74-106) Calcium Level 9.7 mg/dL (8.7-10.4) Magnesium Level 2.0 mg/dL (1.6-2.6) White Blood Count 9.8 10^3/uL (4.4-10.8) Red Blood Count 3.71 10^6/uL (4.0-5.20) Hemoglobin 11.1 g/dL (12.2-16.2) Hematocrit 32.3 % (36.0-46.0) Mean Corpuscular Volume 87.0 fL (80.0-100.0) Mean Corpuscular Hemoglobin 29.9 pg (28.0-32.0) Mean Corpuscular Hemoglobin Concent 34.4 g/dL (32.0-36.0) Red Cell Distribution Width 12.2 % (11.8-14.3) Platelet Count 239 10^3/uL (140-450) Mean Platelet Volume 10.2 fL (6.9-10.8) Neutrophils (%) (Auto) 67.8 % (37.0-80.0) Lymphocytes (%) (Auto) 19.0 % (10.0-50.0) Monocytes (%) (Auto) 12.2 % (0.0-12.0) Eosinophils (%) (Auto) 0.5 % (0.0-7.0) Basophils (%) (Auto) 0.5 % (0.0-2.0) Neutrophils # (Auto) 6.6 10 ^3/uL (1.6-8.6) Lymphocytes # (Auto) 1.9 10 ^3/uL (0.4-5.4) Monocytes # (Auto) 1.2 10 ^3/uL (0-1.3) Eosinophils # (Auto) 0.1 10 ^3/uL (0-0.8) Basophils # (Auto) 0 10 ^3/uL (0-0.2) Nucleated Red Blood Cells 0.0 % Lactic Acid Level 1.7 mmol/L (0.4-2.0) Test 11/02/24 03:49 11/01/24 17:46 Total Bilirubin 0.7 mg/dL (0.2-1.0) Aspartate Amino Transferase (AST) 19 U/L (13-40) Alanine Aminotransferase (ALT) 15 U/L (7-40) Alkaline Phosphatase 63 U/L (46-116) Total Protein 8.0 g/dL (5.7-8.2) Albumin 4.7 g/dL (3.2-4.8) Urine Color Yellow (Yellow) Urine Clarity Turbid (Clear) Urine pH 5.5 (5.0-9.0) Urine Specific [place] 1.021 (1.001-1.035) Urine Protein 1+ (Negative) Urine Ketones 2+ (Negative) Urine Blood Trace /uL (Negative) Urine Nitrite Negative (Negative) Urine Bilirubin Negative (Negative) Urine Urobilinogen Normal mg/dL (Negative) Urine Leukocyte Esterase 1+ /uL (Negative) Urine RBC 11 /hpf (0 - 4) Urine Microscopic WBC 27 /HPF (0-5) Urine Squamous Epithelial Cells Few /hpf (<5) Urine Bacteria Few /hpf (None Seen) Urine Mucus Few (None Seen) Urine Glucose Normal mg/dL (Normal) Other Laboratory Tests 11/06/24 09:45 11/03/24 06:33 Brief Hx & Hospital Course: Lenore Armas is a 54-year-old female with past medical history of hypertension, hyperlipidemia, she came to the ER with chief complain of flank pain and back pain. On admission, flank and back pain rating 10/10, associated with nausea and vomiting since last 3 days. She reported exertional shortness of breath. She also had productive cough with white sputum on admission. The patient also reported occasional headaches. Patient was treated with antibiotics for complicated UTI with sepsis. Urine culture showed crystal resistent to fluroquinolones which was discontinued and was started on ceftriaxone. Episode of hypertensive urgency was treated with clonidine and nifedipine. She had an episode of angioedema likely due to DEON inhibitor which was stopped and subsequently the angioedema subsided. Patient feels now and is being discharged Condition at Discharge: Good Final Diagnosis/Problems List Intractable Left flank pain, likely due to below Sepsis due to Complicated UTI Pyelonephritis, possible Neutrophilic leukocytosis WBCs 12.9 K Tachycardia, fever Lactic acid WNL UA positive for UTI; Turbid urine, trace blood, U WBC 27, few bacteria Urine culture shows E coli resistant to levofloxacin, ciprofloxacin Blood culture negative preliminary Pain management Culture shows resistance to levofloxacin; Discontinue IV levofloxacin Start IV ceftriaxone Angioedema likely due to DEON inhibitor Discontinue lisinopril. Continue monitoring Discussed with patient: She will avoid DEON inhibitors and Entresto in future Renal calculi Hx of recurrent renal calculi Continue tamsulosin CT shows Heterogeneous appearance of the kidneys with nonobstructing bilateral renal calculi. Hypertensive urgency Managed with clonidine, nifedipine Fibroid uterus, CT finding Hepatic steatosis, CT finding Diverticulosis, without diverticulitis, CT finding Microcytic anemia Discharge Disposition: Home Discharge Instruct/Medications Diet: Cardiac 2g Na,low cholest Diet comment: Please take Potassium rich diet, fruits / bannana Activity: No Restrictions, As Tolerated Follow Up/Referral: PCP follow up within 7 days DC clinic follow up Medications: as per EHR Scheduled Cephalexin (Keflex Capsule), 500 MG PO BID Hctz (Hydrochlorothiazide), 25 MG PO DAILY Nifedipine (Nifedipine Er), 1 TAB PO DAILY Discharge Statement: "Patient was advised to return to the ER or call 911 if any headaches, dizziness, shortness of breath, chest pain, abdominal pain, bleeding, fevers, or worsening of medical condition. Patient was counseled about treatment plan, medications, possible side effects, patientverbalized understanding. All questions were answered to the best of my ability. This discharge took greater then 30 minutes in planning, reviewing documentation, counseling the patient, and discussing with other team members." ASSESSMENT ASSESSMENT Assessment Compliacated UTI/Right Pyelonephritis with Fluoroquinolone Resistant Abdominal pain HTNsive urgency VILMA VALENCIA RESIDENT Nov 06, 2024 16:49
== END 2024-11-06 19:02 | disposition home or self-care (01) | DRG 720 ==
LOC: ER 17:39 → OVERFLOW 22:19 → WEST WING 11-02 14:18
PROVIDERS: ADMIT Student in an Organized Health Care Education/Training Program; ATTEND Student in an Organized Health Care Education/Training Program
DX: A41.9 Sepsis, unspecified organism (principal); K76.0 Fatty (change of) liver, not elsewhere classified; D25.9 Leiomyoma of uterus, unspecified; I16.0 Hypertensive urgency; K57.30 Diverticulosis of large intestine without perforation or abscess without bleeding; N10 Acute pyelonephritis; T78.3XXA Angioneurotic edema, initial encounter; D50.9 Iron deficiency anemia, unspecified; T46.4X5A Adverse effect of angiotensin-converting-enzyme inhibitors, initial encounter; E78.5 Hyperlipidemia, unspecified; Z88.0 Allergy status to penicillin; Z88.2 Allergy status to sulfonamides; Z79.899 Other long term (current) drug therapy; Z87.442 Personal history of urinary calculi; Z82.49 Family history of ischemic heart disease and other diseases of the circulatory system; Z80.0 Family history of malignant neoplasm of digestive organs; Y92.89 Other specified places as the place of occurrence of the external cause
CPT/HCPCS: 36415; 71046; 74176; 80048; 80053; 81001; 83605; 83735; 84132; 85025; 87040; 87086; 87088; 87186; G0378; J1885; J1956; J2003; J2405; J3490